=== PATIENT | female | born 1935 | race American Indian/Alaskan Native ===

== ENCOUNTER 2017-10-21 11:25 | Emergency (ER) | payer MEDICARE ==
[2017-10-21 12:09] VITALS: BP 123/65
--- NOTE | 2017-10-21 12:31 | Emergency Department Report ---
ED General Adult HPI - General Chief complaint: Abdominal Pain Stated complaint: CONSTIPATION Time Seen by Provider: 10/21/17 12:17 Source: patient, family, EMS (ems notes not available at time of chart dictation), RN notes reviewed, old records reviewed Mode of arrival: Stretcher Limitations: Altered Mental Status - History of Present Illness Initial comments: This is an 82-year-old female. I have evaluated this patient in the past. Past medical history includes dementia, failure to thrive, hypertension, hospital admission in August for sepsis secondary to cholecystitis, currently with a biliary tube. The patient is brought to the hospital by her family for evaluation of not having a bowel movement. This has been present for one week. Family indicates patient is taking her medicine with applesauce. No fevers or chills, no chest pain, no shortness of breath, no significant change in activities from baseline. There is no lethargy. They report the patient is at her baseline. Not really eating or drinking much otherwise. -: Gradual Consistency: constant Improves with: none Worsens with: none Associated Symptoms: confusion (chronic), loss of appetite, malaise, weakness ( chronic), other. denies: chest pain, cough, diaphoresis, fever/chills, headaches, nausea/vomiting, rash, seizure, shortness of breath, syncope - Related Data Home Medications Medication Instructions Recorded Confirmed Last Taken Donepezil HCl 10 mg PO HS 09/13/17 10/21/17 Unknown Famotidine 20 mg PO QPM 09/13/17 10/21/17 09/13/17 Spironolactone 25 mg PO DAILY 09/13/17 10/21/17 Unknown Latanoprost 0.005% [Xalatan 0.005%] 1 drop OU QPM 10/21/17 10/21/17 Unknown hydrALAZINE [Apresoline] 25 mg PO BID 10/21/17 10/21/17 Unknown Allergies Allergy/AdvReac Type Severity Reaction Status Date / Time Penicillins Allergy Unknown Verified 10/21/17 12:10 ED Review of Systems ROS: Stated complaint: CONSTIPATION Other details as noted in HPI Constitutional: malaise. denies: fever Eyes: denies: eye discharge ENT: denies: epistaxis Respiratory: denies: cough Cardiovascular: denies: chest pain Gastrointestinal: constipation Genitourinary: as per HPI ED Past Medical Hx - Past Medical History Previous Medical History?: Yes Hx Hypertension: Yes (unknown) Hx Congestive Heart Failure: No Hx Diabetes: No Hx Asthma: No Hx COPD: No Hx Dementia: Yes Additional medical history: cholecystitis, glaucoma, pneumonia - Surgical History Past Surgical History?: Yes Additional Surgical History: left total hip replacement, gallbladder tube - Social History Smoking Status: Never Smoker Substance Use Type: None - Medications Home Medications: Home Medications Medication Instructions Recorded Confirmed Last Taken Type Donepezil HCl 10 mg PO HS 09/13/17 10/21/17 Unknown History Famotidine 20 mg PO QPM 09/13/17 10/21/17 09/13/17 History Spironolactone 25 mg PO DAILY 09/13/17 10/21/17 Unknown History Latanoprost 0.005% [Xalatan 0.005%] 1 drop OU QPM 10/21/17 10/21/17 Unknown History hydrALAZINE [Apresoline] 25 mg PO BID 10/21/17 10/21/17 Unknown History ED Physical Exam - General Limitations: Other (patient is demented. Patient is a poor historian) General appearance: in no apparent distress - Head Head exam: Present: atraumatic, normocephalic - Eye Eye exam: Present: normal appearance - ENT ENT exam: Present: mucous membranes dry - Neck Neck exam: Present: normal inspection, full ROM. Absent: tenderness, meningismus - Respiratory Respiratory exam: Present: normal lung sounds bilaterally. Absent: respiratory distress - Cardiovascular Cardiovascular Exam: Present: regular rate, normal rhythm, normal heart sounds. Absent: bradycardia, tachycardia, irregular rhythm, systolic murmur, diastolic murmur, rubs, gallop - GI/Abdominal GI/Abdominal exam: Present: soft, normal bowel sounds, other (a biliary drainage tube is noted in the right upper quadrant with no redness, pus or streaking). Absent: distended, tenderness, guarding, rebound, rigid, pulsatile mass - Rectal Rectal exam: Absent: normal inspection (sacral ulcers noted. No redness, pus or streaking) - Extremities Exam Extremities exam: Present: normal inspection. Absent: tenderness, pedal edema, joint swelling - Back Exam Back exam: Absent: tenderness, CVA tenderness (R), paraspinal tenderness - Neurological Exam Neurological exam: Present: alert, other (moving 4 extremities. Follows some commands. Demented. No facial droop.) - Psychiatric Psychiatric exam: Present: normal affect, normal mood - Skin Skin exam: Present: warm, dry, intact, normal color. Absent: rash ED Course Vital Signs 10/21/17 11:25 Temperature 97.6 F Pulse Rate 88 Respiratory 18 Rate Blood Pressure 123/65 ED Medical Decision Making - Lab Data Result diagrams: 10/21/17 12:51 10/21/17 12:51 Vital Signs 10/21/17 11:25 Temperature 97.6 F Pulse Rate 88 Respiratory 18 Rate Blood Pressure 123/65 Lab Results 10/21/17 10/21/17 10/21/17 Range/Units 12:51 12:51 13:00 WBC 9.4 (4.5-11.0) K/mm3 RBC 3.71 (3.65-5.03) M/mm3 Hgb 10.2 (10.1-14.3) gm/dl Hct 31.4 (30.3-42.9) % MCV 85 (79-97) fl MCH 28 (28-32) pg MCHC 33 (30-34) % RDW 15.6 H (13.2-15.2) % Plt Count 346 (140-440) K/mm3 Sodium 134 L (137-145) mmol/L Potassium 4.1 (3.6-5.0) mmol/L Chloride 97.7 L (98-107) mmol/L Carbon Dioxide 25 (22-30) mmol/L Anion Gap 15 mmol/L BUN 10 (7-17) mg/dL Creatinine 0.6 L (0.7-1.2) mg/dL Estimated GFR > 60 ml/min BUN/Creatinine Ratio 17 % Glucose 83 (65-100) mg/dL Calcium 9.3 (8.4-10.2) mg/dL Total Creatine Kinase 74 (30-135) units/L Urine Color Yellow (Yellow) Urine Turbidity Clear (Clear) Urine pH 6.0 (5.0-7.0) Ur Specific [place] 1.013 (1.003-1.030) Urine Protein <15 mg/dl (Negative) mg/dL Urine Glucose (UA) Neg (Negative) mg/dL Urine Ketones 20 (Negative) mg/dL Urine Blood Neg (Negative) Urine Nitrite Neg (Negative) Urine Bilirubin Neg (Negative) Urine Urobilinogen < 2.0 (<2.0) mg/dL Ur Leukocyte Esterase Neg (Negative) Urine WBC (Auto) 1.0 (0.0-6.0) /HPF Urine RBC (Auto) 3.0 (0.0-6.0) /HPF U Epithel Cells (Auto) < 1.0 (0-13.0) /HPF Urine Mucus Few /HPF - Radiology Data Radiology results: report reviewed, image reviewed Report Referring Physician: CORIE BARRAZA Patient Name: TRI LIMON Date of : 1935 Sex: Female Report Date: 2017-10-21 Report Status: Finalized Findings [facility] [address] [place] [address] Cat Scan Report Signed Patient: TRI LIMON MR#: [id number] : 1935 Acct:[id number] Age/Sex: 82 / F ADM Date: 10/21/17 Loc: ED Attending Dr: Ordering Physician: CORIE BARRAZA MD Date of Service: 10/21/17 Procedure(s): CT abdomen pelvis wo con Accession Number(s): [id number] cc: CORIE BARRAZA MD CT ABDOMEN PELVIS WITHOUT CONTRAST: HISTORY: Constipation versus small bowel obstruction. COMPARISON: 09/13/17. TECHNIQUE: Helical CT in 1.25mm intervals without IV contrast. Sagittal and coronal reconstructions. FINDINGS: Lung bases: Adequately aerated. Normal heart size. Liver: Normal. Biliary system: A cholecystostomy tube has been inserted since the previous exam. The gallbladder is collapsed and unremarkable. No biliary dilatation is appreciated. Pancreas: Normal. Spleen: Normal. Scattered calcified granulomas are noted. Kidneys/ureters/bladder: The right kidney and collecting system are unremarkable. 2.8 cm cyst in the mid left kidney is unchanged. The left kidney and collecting system are unremarkable otherwise. The bladder is partially empty but within normal limits. Adrenal glands: Normal. Aorta: Mild calcifications. No aneurysm. Intestines: Slightly limited evaluation of the bowel loops without oral contrast. There is no evidence for constipation or bowel obstruction. No obvious mass or inflammatory changes. Appendix: Normal. Pelvic viscera: Small calcified uterine fibroids are identified. The adnexa are within normal limits. Ascites: Small ascites has resolved since the previous exam. Adenopathy: None. Musculoskeletal: Mild thoracolumbar spondylosis. No fracture or suspicious bony lesion is identified. Left hip replacement hardware generates artifact. IMPRESSION: No acute process. No evidence for constipation or small bowel obstruction. A cholecystostomy tube is in place with no abnormality noted. Mild uterine fibroid disease. Left renal cyst. Transcribed By: TTR Dictated By: LIAN WU JR, MD Electronically Authenticated By: LIAN WU JR, MD Signed Date/Time: 10/21/17 2446 - Medical Decision Making Differential diagnosis, including but not limited to: Failure to thrive, dementia, constipation, obstruction Assessment and plan: 82-year-old female who is taking applesauce with medications at home with decreased oral intake overall, and no bowel movements. Laboratory studies unremarkable, urinalysis unremarkable, patient afebrile with reassuring vital signs, a noncontrast CT scan of the abdomen and pelvis was negative for acute disease. Patient is most likely entering the end stages of dementia. Extensive discussion had with the patient's family. They do not want to pursue percutaneous nutrition. They prefer comfort care, and have pursued hospice actively while here. The understands that the patient's dementia is terminal Family understands poor prognosis. They're going to follow up with outpatient hospice. They do not want a feeding tube. Critical care attestation.: If time is entered above; I have spent that time in minutes in the direct care of this critically ill patient, excluding procedure time. ED Disposition Clinical Impression: Dementia Disposition: DC-01 TO HOME OR SELFCARE Is pt being admited?: No Does the pt Need Aspirin: No Condition: Stable Instructions: Abdominal Pain (ED) Additional Instructions: Continue current outpatient medications. Follow up with her primary care doctor as scheduled. Follow-up with your general surgeon as scheduled. If family changes mind about tube feeding, follow-up with gastroenterology as needed. Return to the ER right away with fevers, chills, lethargy, irritability , projectile vomiting, change in mental status, confusion, inability to tolerate liquid feeds. Referrals: CL RYDER MD [Primary Care Provider] - 3-5 Days NATALIYA ALMARAZ MD [Staff Physician] - 3-5 Days [facility] [Provider Group] - 3-5 Days GIO DE LA GARZA DO [Staff Physician] - 3-5 Days
[2017-10-21 13:16] LABS: Hematocrit 31.4 % (30.3-42.9); Hemoglobin 10.2 gm/dl (10.1-14.3); Mean Corpuscular HGB Conc 33 % (30-34); Mean Corpuscular Hemoglobin 28 pg (28-32); Mean Corpuscular Volume 85 fl (79-97); Platelet Count 346 K/mm3 (140-440); Red Blood Count 3.71 M/mm3 (3.65-5.03); Red Cell Distribution Width 15.6 % (13.2-15.2)
[2017-10-21 13:28] LABS: Bilirubin,Urine NEG (Negative); Blood,Urine NEG (Negative); Color,Urine Yellow (Yellow); Mucus,Urine FEW /HPF; Protein,Urine <15 mg/dL mg/dL (Negative); Urobilinogen,Urine < 2.0 mg/dL (<2.0)
[2017-10-21 13:52] LABS: BUN/Creatinine Ratio 17; Blood Urea Nitrogen 10 mg/dL (7-17); Calcium 9.3 mg/dL (8.4-10.2); Hemolysis Index 22
--- NOTE | 2017-10-21 14:26 | Cat Scan Report ---
CT ABDOMEN PELVIS WITHOUT CONTRAST: HISTORY: Constipation versus small bowel obstruction. COMPARISON: 09/13/17. TECHNIQUE: Helical CT in 1.25mm intervals without IV contrast. Sagittal and coronal reconstructions. FINDINGS: Lung bases: Adequately aerated. Normal heart size. Liver: Normal. Biliary system: A cholecystostomy tube has been inserted since the previous exam. The gallbladder is collapsed and unremarkable. No biliary dilatation is appreciated. Pancreas: Normal. Spleen: Normal. Scattered calcified granulomas are noted. Kidneys/ureters/bladder: The right kidney and collecting system are unremarkable. 2.8 cm cyst in the mid left kidney is unchanged. The left kidney and collecting system are unremarkable otherwise. The bladder is partially empty but within normal limits. Adrenal glands: Normal. Aorta: Mild calcifications. No aneurysm. Intestines: Slightly limited evaluation of the bowel loops without oral contrast. There is no evidence for constipation or bowel obstruction. No obvious mass or inflammatory changes. Appendix: Normal. Pelvic viscera: Small calcified uterine fibroids are identified. The adnexa are within normal limits. Ascites: Small ascites has resolved since the previous exam. Adenopathy: None. Musculoskeletal: Mild thoracolumbar spondylosis. No fracture or suspicious bony lesion is identified. Left hip replacement hardware generates artifact. IMPRESSION: No acute process. No evidence for constipation or small bowel obstruction. A cholecystostomy tube is in place with no abnormality noted. Mild uterine fibroid disease. Left renal cyst.
== END 2017-10-21 19:20 | disposition home or self-care (01) ==
LOC: ED 11:25
DX: F03.90 Unspecified dementia, unspecified severity, without behavioral disturbance, psychotic disturbance, mood disturbance, and anxiety (principal); Z88.0 Allergy status to penicillin
CPT/HCPCS: 36415; 74176; 80048; 81001; 82550; 85027; 87086; 99284